=== PATIENT | female | born 1970 | race American Indian/Alaskan Native ===

== ENCOUNTER 2020-01-30 08:08 | Outpatient (CLI) | payer OTHER ==
--- NOTE | 2020-01-30 08:58 | XRay Report ---
Right hip-2 views INDICATION: RIGHT HIP PAIN. Generalized right hip pain for the past month with no reported injury COMPARISON: None. IMPRESSION: No acute osseous or soft tissue abnormality. 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 Signer Name: Best Zaragoza MD Signed: 01/30/2020 8:54 AM Workstation Name: [id number]
--- NOTE | 2020-01-30 17:02 | Mammography Report ---
DIGITAL SCREENING MAMMOGRAM WITH CAD, 01/30/2020 INDICATION: Routine screening mammography. TECHNIQUE: Digital bilateral 2D mammography was obtained in the craniocaudal and mediolateral obliq ue projections. This examination was interpreted with the benefit of Computer-Aided Detection analysi s. COMPARISON: 05/12/2018. FINDINGS: Breast Density: There are scattered areas of fibroglandular density. There is no evidence of dominant mass, suspicious calcifications or architectural distortion in the l eft breast. Possible developing asymmetry inferior medial right breast middle depth. Spot compression views recommended with possible ultrasound. IMPRESSION: Follow up recommendation: Special View: Spot BI-RADS Category 0: Incomplete. Needs additional imaging evaluation and/or prior mammograms for emiliana rison. A "normal" or negative report should not discourage follow up or biopsy of a clinically significant f inding. A written summary of these findings will be mailed to the patient. The patient will be entered into a mammography reporting system which will generate a reminder letter for the patient's next appointmen t at the appropriate interval. The [employer] recommends yearly mammograms starting at age 40 and continuing as l taj as a woman is in good health. Breast MRI is recommended for women with an approximate 20-25% or greater lifetime risk of breast cancer, including women with a strong family history of breast or ova roel cancer or who have been treated for Hodgkin's disease. Signer Name: Kwaku Lobo MD Signed: 01/30/2020 4:57 PM Workstation Name: [id number]
== END 2020-01-30 08:09 | disposition home or self-care (01) ==
LOC: MAMMO 08:08
PROVIDERS: ATTEND Family Medicine
DX: Z12.31 Encounter for screening mammogram for malignant neoplasm of breast (principal); M25.551 Pain in right hip; N64.89 Other specified disorders of breast
CPT/HCPCS: 77067